=== PATIENT | female | born 1975 | race Caucasian/White ===

== ENCOUNTER 2017-09-29 08:29 | Emergency (ER) | payer SELFPAY ==
[2017-09-29] MEDS: IBUPROFEN 200 MG TAB PO (09:20)
== END 2017-09-29 09:57 | disposition home or self-care (01) ==
LOC: FTE 08:29
DX: M79.641 Pain in right hand (principal); M25.562 Pain in left knee
CPT/HCPCS: 73110; 73110-RT; 73130-RT; 73562; 99284-25

== ENCOUNTER 2018-12-04 12:38 | Emergency (ER) | payer SELFPAY | END 2018-12-04 14:35 | disposition left against medical advice (07) | LOC: E/R 12:38 | DX: Z53.21 Procedure and treatment not carried out due to patient leaving prior to being seen by health care provider (principal) ==